=== PATIENT | male | born 1950 | race African-American/Black ===

== ENCOUNTER 2017-08-21 23:11 | Emergency (ER) | payer SELFPAY ==
[~2017-08-21] VITALS: Ht 177.8 cm; Wt 77.0 kg
[2017-08-21] MEDS ORDERED: SODIUM CHLORIDE 0.9% 1,000 ML IV ONE (23:18)
[2017-08-21] MEDS ORDERED: IBUPROFEN 600MG TABLET PO STA (23:18)
[2017-08-21 23:42] LABS: BASOPHILS % 0.6 % (0.0-2.0); EOSINOPHILS % 0.9 % (0.0-5.0); HEMATOCRIT. 36.4 % (42.0-52.0); HEMOGLOBIN. 12.2 g/dL (14.0-18.0); LYMPHOCYTES % 12.1 % (20.0-50.0); MEAN CORPUSCULAR HEMOGLOBIN 28.4 pg (28.0-32.0); MEAN CORPUSCULAR VOLUME 84.9 fL (80.0-94.0); MONOCYTES % 9.4 % (2.0-8.0); PLATELET 202 x1000/uL (130-400); RED BLOOD CELL COUNT 4.28 mill/uL (4.7-6.1); RED CELL DISTRIBUTION WIDTH 14.8 % (11.6-14.6)
[2017-08-21 23:49] LABS: CHLORIDE 102 mEq/L (98-107)
[2017-08-21 23:51] LABS: PROTHROMBIN TIME 10.9 sec (9.4-11.6)
[2017-08-21 23:59] LABS: CARBON DIOXIDE 28 mEq/L (21-32); ETHANOL BLOOD < 10 mg/dL
[2017-08-22] MEDS ORDERED: INSULIN REGULAR (HUMULIN R) 300UNITS/3ML IV ONE (00:45)
[2017-08-22 01:25] VITALS: BP 137/90
== END 2017-08-22 02:19 | disposition home or self-care (01) ==
LOC: ER 23:14
DX: E11.65 Type 2 diabetes mellitus with hyperglycemia (principal); N28.9 Disorder of kidney and ureter, unspecified; J44.9 Chronic obstructive pulmonary disease, unspecified; M79.1 Myalgia; E86.0 Dehydration; I11.9 Hypertensive heart disease without heart failure; Z88.4 Allergy status to anesthetic agent; V43.52XA Car driver injured in collision with other type car in traffic accident, initial encounter; Y93.89 Activity, other specified; Y92.488 Other paved roadways as the place of occurrence of the external cause
CPT/HCPCS: 36415; 80053; 82962; 85025; 85610; 93005; 96361; 96374; 99285; G0482; J1815; J7030; Z7610